=== PATIENT | female | born 1955 | race Caucasian/White ===

== ENCOUNTER 2016-11-09 06:08 | Day surgery (SDC) | payer BC ==
[~2016-11-09] VITALS: Ht 157.5 cm; Wt 100.4 kg
--- NOTE | ~2016-11-09 | OR ---
ADMIT: 11/09/2016 RM/LOC: [facility] MR#: [id number] [address] [id number] ABEBA GARZA [address] [place] [address] Operative/Delivery Room Report SEX: F AGE: 61 : 1955 SURGERY DATE: 11/09/2016 SURGEON: Marin Kaur MD PROCEDURE: Esophagogastroduodenoscopy with biopsies. PREOPERATIVE DIAGNOSES: 1. Celiac disease. 2. Persistent diarrhea. POSTOPERATIVE DIAGNOSIS: Gastric polyp in the cardia of the stomach. DESCRIPTION OF THE PROCEDURE: The patient was brought to procedure room, placed in left lateral decubitus position. Informed consent had been obtained preoperatively. The risks and benefits including, but not limited to, perforation, sedation, bleeding were discussed with the patient and agreed upon. All questions were answered, alternatives discussed, the patient agreed. Monitored anesthesia care was provided by Indra Guerrero CRNA with propofol and Sufenta. The Olympus videoendoscope, model GIF-XQ 180 was passed through level of cricopharyngeus using finger guidance. Then using direct visualization, scope was passed the length the esophagus where no abnormalities of the esophageal mucosa, hiatal hernia, or esophageal varices were identified. The stomach was entered, air was insufflated, fundic pool was suctioned. Gastric mucosa inspected in its entirety and found to be normal except for in the cardia of the stomach, there was a polyp that was not a typical benign fundic polyp, it had somewhat of a dobson color and I was suspicious that perhaps this represented a carcinoid. This area was biopsied with cold biopsy forceps. Biopsies were taken in the antrum to rule out occult Helicobacter infection. The pyloric sphincter was somewhat patulous. Duodenal bulb was entered and inspected through the second part. Several biopsies were taken due to her history of celiac disease. The mucosa did appear to be somewhat less villous than normal. The scope was withdrawn into the stomach, and then slowly removed with an incidental view of the vocal cords revealing no abnormalities. The patient tolerated the procedure well. No complications were expected. Blood loss was less than 1 mL. She will call me in 1 week for her biopsy report, sooner if she should have any postoperative problems. We will now proceed with colonoscopy on this patient due to her history of colon polyps and diarrhea. Marin Kaur MD/ vinny JOB #: [id number] CC: Marin Kaur, Attending Physician Mirtha Desouza, Family Physician
--- NOTE | 2016-11-10 07:31 | OR ---
ADMIT: 11/09/2016 RM/LOC: [facility] MR#: [id number] [id number] ABEBA GARZA [address] [place] [address] Operative/Delivery Room Report SEX: F AGE: 61 : 1955 SURGERY DATE: 11/09/2016 SURGEON: Marin Kaur MD PROCEDURE: Total colonoscopy with hot biopsy polypectomies and random colon biopsies. PREOPERATIVE DIAGNOSES: 1. Colon polyps. 2. Persistent diarrhea. POSTOPERATIVE DIAGNOSES: 1. Sigmoid diverticulosis. 2. Multiple colon polyps. DESCRIPTION OF PROCEDURE: The patient was brought to procedure room, placed in the left lateral decubitus position. She had been gastroscoped prior to this procedure. Once again, informed consent had been obtained preoperatively. The risks and benefits including, but not limited to, perforation, sedation, bleeding were discussed with the patient and agreed upon. All questions were answered, alternatives discussed. The patient agreed. Monitored anesthesia care was provided by Indra Guerrero CRNA with propofol and Sufenta. Anal inspection digital examination revealed no abnormalities or obstructing masses. Olympus videoendoscope, model CH-180AL was inserted through rectum and advanced to the cecum without difficulty. The appendiceal orifice and ileocecal valve were identified. The valve was cannulated. The terminal ileum appeared normal for approximately 15 cm. The scope was withdrawn into the cecum where colon polyps were identified, these were removed with hot biopsy forceps, cauterized, and retrieved. Additional polyps were seen in the proximal transverse colon. In the area of the hepatic flexure, there was a larger polyp that was removed in piecemeal fashion using hot biopsy forceps. This area was cauterized and retrieved. No other polyps were identified beyond the mid transverse, but random colon biopsies were taken throughout the remainder of the colon due to her history of persistent diarrhea to rule out microscopic colitis. Rectum appeared normal. Scope was retroflexed. The anal verge appeared normal. The patient tolerated the procedure well. No complications were expected. Blood loss was less than 1 mL. She will call me in 1 week for her biopsy report, sooner if she should have any postoperative problems. Due to the number of polyps and large size of the polyp that was removed in piecemeal fashion, I would recommend she have repeat colonoscopy in 1 year unless signs or symptoms develop in the interval. Marin Kaur MD/ vinny JOB #: [id number] CC: Marin Kaur, Attending Physician ADMIT: 11/09/2016 RM/LOC: [facility] MR#: [id number] [address] [place] [id number] ABEBA GARZA [address] [place] [address] Operative/Delivery Room Report SEX: F AGE: 61 : 1955 Mirtha Desouza Family Physician
== END 2016-11-09 09:48 | disposition home or self-care (01) ==
LOC: SSS 06:08
DX: D12.3 Benign neoplasm of transverse colon (principal); K29.50 Unspecified chronic gastritis without bleeding; K63.5 Polyp of colon; K52.831 Collagenous colitis; K57.30 Diverticulosis of large intestine without perforation or abscess without bleeding; Z87.891 Personal history of nicotine dependence; G47.30 Sleep apnea, unspecified; Z99.89 Dependence on other enabling machines and devices; I10 Essential (primary) hypertension; K21.9 Gastro-esophageal reflux disease without esophagitis; E66.9 Obesity, unspecified; Z79.899 Other long term (current) drug therapy; Z88.1 Allergy status to other antibiotic agents